=== PATIENT | female | born 1950 | race Caucasian/White ===

== ENCOUNTER → 2016-07-03 | Outpatient (CLI) | payer BC, OTHER ==
[2016-07-03 08:23] LABS: HEMOGLOBIN 12.4 gm/dl (12.3-15.3); RED BLOOD COUNT 5.06 M/UL (4.00-5.10); WHITE BLOOD COUNT 6.7 K/UL (4.5-11.0)
[2016-07-03 08:42] LABS: BUN/CREATININE RATIO 19 (0-10)
== END ==
LOC: LAB 07:20
PROVIDERS: Family Medicine
DX: R53.83 Other fatigue (principal); E78.5 Hyperlipidemia, unspecified; E55.9 Vitamin D deficiency, unspecified
CPT/HCPCS: 36415; 80053; 80061; 84439; 84443; 85027

== ENCOUNTER → 2020-04-20 | Outpatient (CLI) | payer MEDICARE, OTHER ==
[~2020-04-20] MED LIST: ALEVE220 MG PO; ASPIR 8181 MG PO; ATORVASTATIN CA40 MG PO; AUGMENTIN 875-1 EACH PO; CALCIUM600 MG PO; EPIPEN 2-P0.3 MG/0.3 INJ; ESOMEPRAZOLE MA40 MG PO; LOSARTAN-HCTZ1 EACH PO; LUMIGAN 0.01%2.5 ML TOP; MONTELUKAST SOD10 MG PO; NORCO 5-325 TA1 EACH PO; NORVASC 5 MG TAB5 MG PO; RANITIDINE HCL150 MG PO; ROGAINE60 GM TP; TIZANIDINE HCL2 MG PO; TRAMADOL HCL50 MG PO; VITAMIN D250000 UNIT PO
== END ==
LOC: MRI 08:13
DX: M51.36 Other intervertebral disc degeneration, lumbar region (principal); M47.816 Spondylosis without myelopathy or radiculopathy, lumbar region; M51.26 Other intervertebral disc displacement, lumbar region; M51.27 Other intervertebral disc displacement, lumbosacral region; M48.061 Spinal stenosis, lumbar region without neurogenic claudication; M48.07 Spinal stenosis, lumbosacral region
CPT/HCPCS: 72148

== ENCOUNTER → 2020-11-26 | Outpatient (CLI) | payer MEDICARE, OTHER | LOC: EXRD 11:35 | DX: M19.049 Primary osteoarthritis, unspecified hand (principal); R76.8 Other specified abnormal immunological findings in serum | CPT/HCPCS: 73130 ==

== ENCOUNTER → 2021-04-21 | Outpatient (CLI) | payer MEDICARE, OTHER ==
[2021-04-22 09:13] LABS: CORTISOL 2.1 ug/dL (.)
== END ==
LOC: LAB 07:16
PROVIDERS: Nurse Practitioner
DX: E27.8 Other specified disorders of adrenal gland (principal)
CPT/HCPCS: 36415; 82088; 82533; 83835; 84244

== ENCOUNTER → 2021-07-15 | Outpatient (CLI) | payer MEDICARE, OTHER | LOC: KOH-I 13:48 | DX: R79.89 Other specified abnormal findings of blood chemistry (principal); E04.1 Nontoxic single thyroid nodule | CPT/HCPCS: 76536 ==

== ENCOUNTER → 2021-07-25 | Outpatient (CLI) | payer MEDICARE, OTHER | LOC: EXRD 09:06 | DX: M54.50 Low back pain, unspecified (principal); M47.816 Spondylosis without myelopathy or radiculopathy, lumbar region | CPT/HCPCS: 72100 ==

== ENCOUNTER → 2021-09-11 | Outpatient (CLI) | payer MEDICARE, OTHER | LOC: MRI 12:30 | DX: M51.16 Intervertebral disc disorders with radiculopathy, lumbar region (principal); M51.17 Intervertebral disc disorders with radiculopathy, lumbosacral region | CPT/HCPCS: 36415; 72158; 82565; 84520; A9577 ==

== ENCOUNTER → 2021-09-18 | Outpatient (CLI) | payer MEDICARE, OTHER | LOC: US 09:34 | DX: E04.1 Nontoxic single thyroid nodule (principal) ==